=== PATIENT | male | born 1940 | race Caucasian/White ===

== ENCOUNTER → 2016-05-19 | Day surgery (SDC) | payer OTHER ==
[2016-04-15 08:23] VITALS: BMI 28.0
--- NOTE | 2016-04-15 08:55 | PAT Medication Instructions ---
Service Date Apr 15, 2016. Current Home Medication List Amoxicillin (Amoxil), 500 MG PO TID Finasteride (Proscar), 5 MG PO QPM Gabapentin (Neurontin), 600 MG PO TID Rivaroxaban (Xarelto), 1 TAB PO QPM Medication Instructions For Your Scheduled Surgery Amoxicillin (Amoxil), 500 MG PO TID (to be completed prior to surgery) - Check with surgeon/cardiology for instructions: Rivaroxaban (Xarelto), 1 TAB PO QPM - Take the following medications the morning of surgery with a sip of water: Gabapentin (Neurontin), 600 MG PO TID - Take the following medications as scheduled the night before surgery: Finasteride (Proscar), 5 MG PO QPM Gabapentin (Neurontin), 600 MG PO TID If you have any questions please call us at [phone] (Carrie Louis PA-C) or [phone] or [phone]
[2016-04-15 09:22] LABS: BASO % 0.3 %; BASO ABS # 0.02 K/uL (0-0.2); COMPLETE YES; HEMATOCRIT 45.6 % (42-52); IG% 0.3 %; LYMPH % 25.5 %; LYMPH ABS # 1.74 K/uL (1.2-3.4); MEAN CELL VOLUME 87.9 fL (80-100); MEAN CORPUSCULAR HEMOGLOBIN 27.7 pg (25-34); MEAN CORPUSCULAR HGB CONC 31.6 g/dl (32-36); MEAN PLATELET VOLUME 10.9 fL (7.4-10.4); NEUT % 60.9 %; PLATELET COUNT 241 K/uL (130-400); RED BLOOD COUNT 5.19 M/uL (4.7-6.1); WHITE BLOOD COUNT 6.83 K/uL (4.8-10.8)
[2016-04-15 09:25] LABS: URINE APPEARANCE CLOUDY (CLEAR); URINE BILIRUBIN NEG (NEG); URINE COLOR YELLOW; URINE EPITHELIAL CELL AUTO 0-5 /lpf (0-5); URINE NITRITE POS (NEG); URINE PH 5.5 (4.5-7.5); UROBILINOGEN NEG (NEG)
[2016-04-15 09:27] LABS: MANUAL MICROSCOPIC REQUIRED? NO; REVIEW REQ? YES
[2016-04-15 09:52] LABS: BUN/CREATININE RATIO 19.7 (10-20); CREATININE 1.4 mg/dl (0.60-1.40); POTASSIUM 4.4 mmol/L (3.5-5.1)
[2016-04-15 10:08] LABS: CALCIUM 9.1 mg/dl (8.5-10.1)
[2016-05-15 10:00] LABS: HEMATOCRIT 45.7 % (42-52); MEAN CORPUSCULAR HEMOGLOBIN 28.8 pg (25-34); MEAN PLATELET VOLUME 11.2 fL (7.4-10.4); PLATELET COUNT 224 K/uL (130-400); RED BLOOD COUNT 5.25 M/uL (4.7-6.1); WHITE BLOOD COUNT 7.16 K/uL (4.8-10.8)
[2016-05-15 10:02] LABS: URINE APPEARANCE CLEAR (CLEAR); URINE BILIRUBIN NEG (NEG); URINE COLOR YELLOW; URINE NITRITE NEG (NEG); URINE SPECIFIC GRAVITY 1.014 (1.000-1.030); UROBILINOGEN NEG (NEG)
[2016-05-15 10:07] LABS: MANUAL MICROSCOPIC REQUIRED? NO; REVIEW REQ? NO
[2016-05-15 10:37] LABS: BUN/CREATININE RATIO 14.2 (10-20); CALCIUM 8.7 mg/dl (8.5-10.1); CREATININE 1.5 mg/dl (0.60-1.40)
[~2016-05-19] VITALS: Ht 188 cm; Wt 100.4 kg
[~2016-05-19] MED LIST: AMLO-110 PO; AMOX500C3 PO; ATROPINE SULFATE 0.1 MG/ML 5ML SYR IV PRN; CIPROFLOXACIN / D5W 400 MG IV SCH; DOCU-94 PO; EpHEDrine SULFATE INJ 50 MG/ML AMP IV PRN; EpHEDrine SULFATE INJ 50 MG/ML AMP ONE; FENTANYL CITRATE INJ 50 MCG/1 ML 2 ML VIAL IV PRN; FENTANYL CITRATE INJ 50 MCG/1 ML 2 ML VIAL ONE; FINA5TAB PO; FLUMAZENIL 0.1 MG/1 ML 10 ML VIAL IV PRN; GABA-113 PO; LABETALOL HCL IV 5 MG/ML 20ML IV PRN; LACTATED RINGER'S 1000ML 1,000 ML IV SCH; LIDOCAINE HCL 2% 2 ML VIAL (20MG/ML) ONE; METHYLENE BLUE 1% 10 ML VIAL ONE; MIDAZOLAM HCL 1 MG/ML 2ML VIAL ONE; NALOXONE HCL 0.4 MG/1 ML VIAL/CARP IV PRN; NITR-5 PO; ONDANSETRON INJ 2 MG/ML 2 ML VIAL IV PRN; ONDANSETRON INJ 2 MG/ML 2 ML VIAL ONE; OXYC-57 PO; OXYCODONE/ACETAMINOPHEN 5-325 TAB PO PRN; PHEN-876 PO; PROMETHAZINE HCL INJ 12.5 MG in SODIUM CHLORIDE 0.9% 50ML 50 ML IV PRN; PROPOFOL IV EMULSION 10 MG/ML 20 ML VIAL IV ONE; XRL10 PO
[2016-05-19 08:13] VITALS: BP 156/98; PULSE 65; TEMP 36.9; O2SAT 96; Ht 188 cm; Wt 100.4 kg
--- NOTE | 2016-05-19 08:53 | History & Physical Bridge Note ---
H&P Re-Evaluation Bridge Note: I have examined the patient, reviewed the History & Physical and in the interval since the performance of the History & Physical I have noted the following changes of clinical significance: No changes noted
--- NOTE | 2016-05-19 11:39 | [facility] Post Operative Brief Note ---
Immediate Operative Summary Operative Date May 19, 2016. Pre-Operative Diagnosis Benign Prostatic Hyperplasia with Incomplete Bladder Emptying Post-Operative Diagnosis Benign Prostatic Hyperplasia with Incomplete Bladder Emptying Procedure(s) Performed Bipolar Transurethral Resection Prostate Surgeon Dr. Augustus Jim Roller Cleaner Surgeon(s) None Estimated Blood Loss 5ml Findings Very large gland with large intravesical portion Specimens A. Prostate Chips
--- NOTE | 2016-05-19 11:42 | Discharge Instructions ---
Discharge Instructions Visit Reason for Visit: Urinary Retention;N40.0 Discharge Discharge Diagnosis / Problem: Urinary retention Discharge Goals Goal(s): Therapeutic intervention Activity Recommendations Activity Limitations: resume your previous activity (take it easy today) Anesthesia . Post Anesthesia Instructions: If you have had General Anesthesia or IV Sedation: * Do not drive today. * Resume driving when surgeon permits. * Do not make important decisions or sign legal documents today. * Call surgeon for: 1. Temperature elevations greater than 101 degrees F. 2. Uncontrollable pain. 3. Excessive bleeding. 4. Persistent nausea and vomiting. 5. Medication intolerance (nausea, vomiting or rash). * For nausea and vomiting use only clear liquids such as: tea, soda, bouillon until nausea subsides, then gradually increase diet as tolerated. * If you have any concerns or questions, call your surgeon's office. If physician is unavailable and it is an emergency, call 911 or go to the nearest emergency room. . Diet Recommendations Recommended Home Diet: resume previous diet Procedures Procedures Performed: Bipolar Transurethral Resection Prostate Pending Studies Studies pending at discharge: no Medical Emergencies . Who to Call and When: Medical Emergencies: If at any time you feel your situation is an emergency, please call 911 immediately. . Non-Emergent Contact Non-Emergency issues call your: Urologist . . "Provider Documentation" section prepared by Augustus Jim. PA Drug Monitoring Program Search Results: patient reviewed within database
--- NOTE | 2016-05-19 12:16 | Anesthesiology Progress Note ---
Anesthesia Post Op Note Date & Time May 19, 2016 at 12:15 Vital Signs Pain Intensity: 0 Vital Signs Past 12 Hours Date Time Temp Pulse Resp B/P Pulse Ox O2 Delivery O2 Flow Rate FiO2 05/19/16 12:05 36.2 68 20 120/73 94 Room Air 05/19/16 11:55 66 12 125/80 97 Mask 10 05/19/16 11:45 78 20 144/92 97 Mask 10 05/19/16 11:37 36.4 80 16 147/92 95 Mask 10 05/19/16 08:13 36.9 65 18 156/98 96 Room Air Notes Mental Status: alert / awake / arousable, participated in evaluation Pt Amnestic to Procedure: Yes Nausea / Vomiting: adequately controlled Pain: adequately controlled Airway Patency, RR, SpO2: stable & adequate BP & HR: stable & adequate Hydration State: stable & adequate Anesthetic Complications: no major complications apparent
[2016-05-19 12:20] VITALS: BP 121/71; PULSE 66; TEMP 36.4; O2SAT 99
--- NOTE | 2016-05-19 12:32 | OPERATIVE REPORT ---
DATE OF OPERATION: 05/19/2016 PREOPERATIVE DIAGNOSES: Urinary retention and bilateral hydronephrosis secondary to obstructing prostate. POSTOPERATIVE DIAGNOSES: Same. PROCEDURES: Cystoscopy, transurethral resection and vaporization of the prostate. FINDINGS: Cystoscopic exam revealed normal anterior urethra, prostatic fossa was obstructing with kissing lateral lobes and elevated median lobe. The patient had a very large prostate. There was a very large intravesical portion of the prostate too that was creating somewhat of ball valve problem. There was 2-3+ trabeculation with cellules and diverticula. Both ureteral orifices were effluxing clear urine. SURGEON: Dr. Jim. ANESTHESIA: General. DRAINS: 20-Canadian Plasencia catheter in bladder. COMPLICATIONS: None. SPECIMENS: Prostate chips. INDICATIONS FOR PROCEDURE: The patient is a 76-year-old white male was seen in the office for lower urinary tract symptoms. He was found to have bilateral hydroureteronephrosis as well as urinary retention. He has been on maximal medical therapy and has actually been doing CIC 3-4 times a day. He is being brought in now for prostate resection. DETAILS OF PROCEDURE: After induction of an adequate general anesthetic and appropriate time-out, the patient was placed in the dorsal lithotomy position, lower abdomen and genitalia were prepped with Hibiclens and draped in a sterile fashion. Using a 22-Canadian cystoscope, routine cystoscopic exam was performed with the above noted findings with the 30 and 70 degree lenses. Next, using a 24-Canadian resection scope and vaporization loop, the intravesical portion of the median lobe of the prostate was resected until level with the bladder. Care was taken to avoid injury to the ureteral orifices. The bleeding points there were electrocoagulated. I then switched to a vaporization button electrode and the prostatic adenoma was then vaporized from the bladder neck to the verumontanum from 1 o'clock to 6 o'clock clockwise 11 to 6 o'clock counter clockwise. The strip at the bladder neck between 11 and 1 was left untouched to hopefully help prevent bladder neck contractions. After vaporizing and creating a wide open prostatic fossa, any bleeding points were electrocoagulated. All prostate chips were evacuated from the bladder with an wrenchguys mobile evacuator. Care was taken to avoid injury to the ureteral orifices or to the external sphincter. After completing this making sure there was no significant bleeding and all prostate chips were removed from the bladder, the patient's bladder was filled. Resection scope was removed. The patient voided with a good stream on Crede maneuver. A 20-Canadian Plasencia catheter inserted per urethra and hooked to gravity drainage. All needle, sponge and instrument counts were correct at the end of the case. The patient tolerated the procedure well and went to the recovery room in stable condition. I attest to the content of the Intraoperative Record and any orders documented therein. Any exceptions are noted below. JADEN
[2016-05-19 12:50] VITALS: BP 116/80; PULSE 60; O2SAT 93
[2016-05-19 13:20] VITALS: BP 122/65; PULSE 62; TEMP 36.5; O2SAT 92
== END | disposition home or self-care (01) ==
LOC: C.ACU 07:57
PROVIDERS: ATTEND Urology
DX: N40.1 Benign prostatic hyperplasia with lower urinary tract symptoms (principal); R33.9 Retention of urine, unspecified; N13.39 Other hydronephrosis; I48.91 Unspecified atrial fibrillation; R97.20 Elevated prostate specific antigen [PSA]; R36.1 Hematospermia; R39.89 Other symptoms and signs involving the genitourinary system; Z87.891 Personal history of nicotine dependence